=== PATIENT | female | born 2000 | race African-American/Black ===

== ENCOUNTER 2019-02-04 23:37 | Emergency (ER) | payer BC ==
[2019-02-04] MEDS ORDERED: Lidocaine 2% 10 ML* VIAL INJ ONE (23:55)
--- NOTE | 2019-02-04 23:59 | ED ---
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 Patient was drinking EtOH at a birthday alliance party. She slipped on a tarp and hit her chin on a cement pillar. Patient bounced straight back up and did not lose consciousness. Patient denies neck pain. The patient rates the pain 0/10 in severity. Symptoms aggravated by nothing. Symptoms alleviated by nothing. Patient denies fever. LEVEL 5 CAVEAT: COMPLETE HPI UNATTAINABLE DUE TO PATIENT INTOXICATION. - History of Current Complaint Chief Complaint: EDLacSutureRecheck Stated Complaint: ETOH/CHIN LAC PER PT FRIENDS Hx Obtained From: Patient, Family/[employer] - Friend Hx From Patient Unobtainable Due To: Other - ETOH INTOXICATION Onset/Duration: Started Minutes Ago - 45 min PAINT TECHNICIAN, Traumatic, Still Present Skin Exposure Onset/Duration: Minutes Ago - 45 minutes PAINT TECHNICIAN Onset Severity: Mild Current Severity: Mild Pain Intensity: 0 Pain Scale Used: 0-10 Numeric Skin Location: Face - Chin Aggravating Symptom(s): Nothing Alleviating Symptom(s): Nothing Associated Signs & Symptoms: Negative - Fever, neck pain, LOC - Allergy/Home Medications Allergies/Adverse Reactions: Allergies Allergy/AdvReac Type Severity Reaction Status Date / Time nut - unspecified Allergy Anaphylatic Verified 02/04/19 23:41 Shock shellfish derived Allergy Anaphylatic Verified 02/04/19 23:41 Shock PMH/Surg Hx/FS Hx/Imm Hx Previously Healthy: Yes - LEVEL 5 CAVEAT: PMH UNATTAINABLE DUE TO PATIENT INTOXICATION. Cardiovascular History: Denies: Hx Hypercholesterolemia, Hx Hypertension Sensory History: Denies: Hx Legally Blind, Hx Deafness Opthamlomology History: Denies: Hx Legally Blind EENT History: Denies: Hx Deafness Infectious Disease History: No Infectious Disease History: Denies: Traveled Outside the [place] in Last 30 Days Review of Systems - ROS Summary Review of Systems Summary: LEVEL 5 CAVEAT: COMPLETE ROS UNATTAINABLE DUE TO PATIENT INTOXICATION. Negative: Fever Musculoskeletal: Negative - Neck pain Skin: Other - Skin laceration Neurological: Negative - LOC All Other Systems Reviewed And Are Negative: No Physical Exam - Summary Physical Exam Summary: Appearance: Well-appearing, Well-nourished, lying in bed comfortable Skin: 2cm laceration to the point of chin that is gaping open and quite deep Eyes: sclera anicteric, no conjunctival pallor ENT: mucous membranes moist, no tenderness or deformity to the mandible. Neck: deferred Respiratory: No signs of respiratory distress Cardiovascular: Appears well perfused, pulses are nml Abdomen: deferred Musculoskeletal: Moving all 4 extremities without obvious discomfort Neurological: Awake and alert, mentation is normal, speech is fluent and appropriate Psychiatric: affect is normal, does not appear anxious or depressed Triage Information Reviewed: Yes Vital Signs On Initial Exam: Initial Vitals Temp Pulse Resp BP Pulse Ox 97.1 F 83 15 115/72 100 02/04/19 23:38 02/04/19 23:38 02/04/19 23:38 02/04/19 23:38 02/04/19 23:38 Vital Signs Reviewed: Yes Procedures - Sedation Patient Received Moderate/Deep Sedation with Procedure: No - Laceration/Wound Repair 1 Location: head - Point of chin Description: Linear Anesthesia: Local, 2.0%, Lido Length, Depth and Shape: 2cm Betadine Prep?: Yes Laceration/Wound Explored: clean Closure: Single Layer Suture Type: Nylon Number of Sutures: 6 Layer Closure?: Yes Sterile Dressing Applied?: Yes Diagnostics - Vital Signs Vital Signs Temp Pulse Resp BP Pulse Ox 02/04/19 23:38 97.1 F 83 15 115/72 100 - Laboratory Lab Statement: Any lab studies that have been ordered have been reviewed, and results considered in the medical decision making process. 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 Patient denies neck pain or LOC. Patient has a 2cm laceration to the chin, which I sutured together with 6 Nylon stitches. Patient will be discharged home with dx of chin laceration and alcohol intoxication. - Diagnoses Provider Diagnoses: Chin laceration, Alcohol intoxication Discharge ED - Sign-Out/Discharge Documenting (check all that apply): Patient Departure - Discharge - Discharge Plan Condition: Good Disposition: HOME Patient Education Materials: Care For Your Stitches (ED), Alcohol Intoxication (ED) Referrals: [facility] [Outside] Additional Instructions: Sutures need to be removed in 5-7 days. - Billing Disposition and Condition Condition: GOOD Disposition: Home - Attestation Statements Document Initiated by Scribe: Yes Documenting Scribe: Pratik Thakkar Provider For Whom Scribe is Documenting (Include Credential): Fidel Henderson MD Scribe Attestation: I, Pratik Thakkar, scribed for Fidel Henderson MD on 02/05/19 at 0508. Scribe Documentation Reviewed: Yes Provider Attestation: The documentation as recorded by the warnerePratik accurately reflects the service I personally performed and the decisions made by me, Fidel Henderson MD Status of Scribe Document: Viewed
[2019-02-05] MEDS ORDERED: Lidocaine 2% PF * 5 ML VIAL INJ ONE (01:00)
[2019-02-05 04:26] VITALS: BP 106/84
== END 2019-02-05 04:15 | disposition home or self-care (01) ==
LOC: ED 23:37
DX: S01.81XA Laceration without foreign body of other part of head, initial encounter (principal); F10.129 Alcohol abuse with intoxication, unspecified; W18.00XA Striking against unspecified object with subsequent fall, initial encounter; Y92.9 Unspecified place or not applicable
CPT/HCPCS: 12011; 99283

== ENCOUNTER 2019-02-06 11:34 | Emergency (ER) | payer BC ==
[2019-02-06 11:43] VITALS: BP 130/86
== END 2019-02-06 12:00 | disposition left against medical advice (07) ==
LOC: ED 11:34
DX: Z00.00 Encounter for general adult medical examination without abnormal findings (principal); Z53.21 Procedure and treatment not carried out due to patient leaving prior to being seen by health care provider